=== PATIENT | female | born 1955 | race Caucasian/White ===

== ENCOUNTER 2019-04-22 00:51 | Emergency (ER) | payer BC, OTHER ==
[2019-04-22] MEDS ORDERED: Sodium Chloride 0.9% 1000 ML 1,000 ML IV STA (01:05)
[2019-04-22] MEDS ORDERED: ZOFRAN ODT 4 MG PO ONE ×2 (01:12→02:57)
[2019-04-22] MEDS ORDERED: TORAdol 30 mg Injection IV ONE ×2 (01:12→02:40)
--- NOTE | 2019-04-22 01:14 | ERPHSYRPT ---
- History of Present Illness Time Seen by Provider: 04/22/19 01:00 Historian: patient Exam Limitations: no limitations Patient Subjective Stated Complaint: Abdominal pain Triage Nursing Assessment: Patient ambulated back to ED and transferred self to bed. Patient A+O X3. Patient's skin pink, warm and dry. Patient complains of left sided abdominal pain starting earlier today that goes to back constant throbbing 02/24. Patient complains of N/V. Patient's abdomen soft and round with BS X4. Physician History: Pain, Left sided - back around to groin - started this afternoon; nausea and vomiting. No major medical history/appy only surgical procedure. Nothing unusual prior to the pain this PM. No fever. soaking sweats or shaking chills. Timing/Duration: hour(s) (10) Activities at Onset: none Abdominal Pain Onset Location: flank (Left around to left groin) Pain Radiation: flank, groin Severity of Pain-Max: moderate Severity of Pain-Current: moderate Allergies/Adverse Reactions: No Known Drug Allergies Allergy (Verified 04/22/19 00:58) Home Medications: Amlodipine Besylate 5 mg [Norvasc 5 mg] 5 mg PO DAILY 02/23/15 [History] Aspirin 81 mg PO DAILY 02/23/15 [History] Citalopram Hydrobromide 20 mg* [ceLEXa 20 MG] 20 mg PO DAILY 02/23/15 [ History] Quinapril HCl [Accupril] 40 mg PO DAILY 02/23/15 [History] Calcium Carbonate/Vitamin D3 [Calcium 600 + Vit D Caplet] 1 tab PO DAILY [History] Hydrochlorothiazide [Microzide] 1 tab PO DAILY 04/22/19 [History] Niacin (Inositol Niacinate) [Niacin 500 mg Capsule] 1 tab PO BID 04/22/19 [ History] Hx Tetanus, Diphtheria Vaccination/Date Given: No Hx Influenza Vaccination/Date Given: No Hx Pneumococcal Vaccination/Date Given: No Immunizations Up to Date: Yes - Review of Systems Constitutional: Malaise Respiratory: No Symptoms Cardiac: No Symptoms Abdominal/Gastrointestinal: Abdominal Pain, Nausea, Vomiting Genitourinary Symptoms: No Symptoms, No Dysuria, No Frequency, No Hematuria All Other Systems: Reviewed and Negative - Past Medical History Pertinent Past Medical History: Yes Neurological History: No Pertinent History ENT History: No Pertinent History Cardiac History: High Cholesterol, Hypertension Respiratory History: No Pertinent History Endocrine Medical History: No Pertinent History Musculoskeletal History: No Pertinent History GI Medical History: No Pertinent History History: No Pertinent History Psycho-Social History: No Pertinent History Female Reproductive Disorders: No Pertinent History - Past Surgical History Past Surgical History: No Neuro Surgical History: No Pertinent History Cardiac: No Pertinent History Respiratory: No Pertinent History Gastrointestinal: Appendectomy Genitourinary: No Pertinent History Musculoskeletal: No Pertinent History Female Surgical History: No Pertinent History - Social History Smoking Status: Never smoker Exposure to second hand smoke: No Alcohol Use: Socially Drug Use: none Patient Lives Alone: No Significant Family History: hypertension - Female History Hx Last Menstrual Period: menopausal Hx Now: No - Nursing Vital Signs Nursing Vital Signs: Initial Vital Signs Temperature 98.4 F 04/22/19 00:58 Pulse Rate 85 04/22/19 00:58 Respiratory Rate 18 04/22/19 00:58 Blood Pressure 158/94 04/22/19 00:58 O2 Sat by Pulse Oximetry 100 04/22/19 00:58 Pain Scale Pain Intensity 3 - Physical Exam General Appearance: moderate distress, alert Eye Exam: PERRL/EOMI Ears, Nose, Throat Exam: normal ENT inspection, pharynx normal, moist mucous membranes Neck Exam: normal inspection, non-tender, supple Respiratory Exam: normal breath sounds, lungs clear, airway intact Cardiovascular Exam: regular rate/rhythm, normal heart sounds Gastrointestinal/Abdomen Exam: soft, other (hyperactive bowell sounds (recent emesis)) Extremity Exam: normal inspection, No pedal edema, No swelling Neurologic Exam: alert, oriented x 3, cooperative, normal mood/affect Skin Exam: normal color, warm, dry SpO2 Interpretation: normal SpO2: 100 O2 Delivery: Room Air - Course Nursing assessment & vital signs reviewed: Yes - CT Exams Abdomen/Pelvis CT Interpretation: Other (Paraapelvic cyst stable (from 02/23/15) mild left perinephric fat stranding; no stone noted) Ordered Tests: Active Orders 24 hr Category Date Time Status IV Insertion STAT Care 04/22/19 01:05 Active ABDOMEN AND PELVIS W/0 CONTRAS [CT] Stat Exams 04/22/19 01:36 Taken CBC W DIFF Stat Lab 10/06/19 01:19 Completed CMP Stat Lab 04/22/19 01:19 Completed CULTURE,URINE Stat Lab 04/22/19 01:32 Received LIPASE Stat Lab 04/22/19 01:19 Completed UA W/RFX UR CULTURE Stat Lab 04/22/19 01:32 Completed Medication Summary Discontinued Medications Generic Name Dose Route Start Last Admin Trade Name Rina PRN Reason Stop Dose Admin Sodium Chloride 1,000 mls @ 999 mls/hr 04/22/19 01:05 04/22/19 02:38 Sodium Chloride 0.9% 1000 Ml IV 04/22/19 02:05 Infused .Q1H1M STA Infusion Sodium Chloride Confirm 04/22/19 01:21 Sodium Chloride 0.9% 1000 Ml Administered 04/22/19 01:22 Dose 1,000 mls @ ud .ROUTE .STK-MED ONE Ketorolac Tromethamine 15 mg 04/22/19 01:12 04/22/19 01:23 Toradol 30 Mg Injection IV 04/22/19 01:13 15 mg STAT ONE Administration Ketorolac Tromethamine Confirm 04/22/19 01:21 Toradol 30 Mg Injection Administered 04/22/19 01:22 Dose 30 mg .ROUTE .STK-MED ONE Ketorolac Tromethamine 15 mg 04/22/19 02:40 04/22/19 02:43 Toradol 30 Mg Injection IV 04/22/19 02:41 15 mg STAT ONE Administration Ketorolac Tromethamine Confirm 04/22/19 02:42 Toradol 30 Mg Injection Administered 04/22/19 02:43 Dose 30 mg .ROUTE .STK-MED ONE Ondansetron HCl 4 mg 04/22/19 01:12 04/22/19 01:23 Zofran Odt 4 Mg PO 04/22/19 01:13 4 mg STAT ONE Administration Ondansetron HCl Confirm 04/22/19 01:21 Zofran Odt 4 Mg Administered 04/22/19 01:22 Dose 4 mg .ROUTE .STK-MED ONE Lab/Rad Data: Laboratory Result Diagrams 04/22/19 01:19 04/22/19 01:19 Laboratory Results 04/22/19 04/22/19 04/22/19 Range/Units 01:32 01:19 01:19 WBC 7.6 (4.0-10.5) K/mm3 RBC 4.13 (4.1-5.4) M/mm3 Hgb 12.8 (12.0-16.0) gm/dl Hct 37.8 (35-47) % MCV 91.5 (78-100) fl MCH 31.0 (26-32) pg MCHC 33.9 (32-36) g/dl RDW 13.3 (11.5-14.0) % Plt Count 168 (150-450) K/mm3 MPV 10.0 H (6-9.5) fl Gran % 74.0 H (36.0-66.0) % Eos # (Auto) 0.08 (0-0.5) Absolute Lymphs (auto) 1.37 (1.0-4.6) Absolute Monos (auto) 0.51 (0.0-1.3) Lymphocytes % 18.1 L (24.0-44.0) % Monocytes % 6.7 (0.0-12.0) % Eosinophils % 1.1 (0.00-5.0) % Basophils % 0.1 (0.0-0.4) % Absolute Granulocytes 5.60 (1.4-6.9) Basophils # 0.01 (0-0.4) Sodium 139 (137-145) mmol/L Potassium 4.4 (3.5-5.1) mmol/L Chloride 103 (98-107) mmol/L Carbon Dioxide 24 (22-30) mmol/L Anion Gap 16.7 H (5-15) MEQ/L BUN 25 H (7-17) mg/dL Creatinine 0.76 (0.52-1.04) mg/dL Estimated GFR > 60.0 ML/MIN Glucose 146 H (74-106) mg/dL Calcium 10.3 H (8.4-10.2) mg/dL Total Bilirubin 1.10 (0.2-1.3) mg/dL AST 26 (14-36) U/L ALT 17 (0-35) U/L Alkaline Phosphatase 63 (38-126) U/L Serum Total Protein 8.0 (6.3-8.2) g/dL Albumin 4.5 (3.5-5.0) g/dL Lipase 119 (23-300) U/L Urine Color STRAW (YELLOW) Urine Appearance CLEAR (CLEAR) Urine pH 6.0 (5-6) Ur Specific Lafe 1.013 (1.005-1.025) Urine Protein NEGATIVE (Negative) Urine Ketones NEGATIVE (NEGATIVE) Urine Blood SMALL (0-5) Brenden/ul Urine Nitrite NEGATIVE (NEGATIVE) Urine Bilirubin NEGATIVE (NEGATIVE) Urine Urobilinogen NEGATIVE (0-1) mg/dL Ur Leukocyte Esterase TRACE (NEGATIVE) Urine WBC (Auto) 3-5 (0-5) /HPF Urine RBC (Auto) 3-5 (0-2) /HPF U Epithel Cells (Auto) NONE (FEW) /HPF Urine Bacteria (Auto) NONE SEEN (NEGATIVE) /HPF Urine Mucus (Auto) SLIGHT (NEGATIVE) /HPF Urine Culture Reflexed YES (NO) Urine Glucose NEGATIVE (NEGATIVE) mg/dL - Progress Progress: improved Progress Note: 04/22/19 01:46 Much improved with zofran and toradal; advised I suspect a kidney stone based on clinical picture and plan on a CT scan. Patient voices understanding and satisfaction. 04/22/19 02:[address] results; plan to TX with ABX and cover for pain/nasea. Ordered another half dose of Toradal (kidney function normal); patient voices understanding and satisfaction. - Departure Departure Disposition: Home Clinical Impression: Flank pain Condition: Stable Critical Care Time: No Referrals: CANDY ANDERSON [Primary Care Provider] - Additional Instructions: Take antibiotic as prescribed; use pain and nausea medication as prescribed. Follow up with primary care and discuss findings; taqke CD of scan with you for any follow up - you need to have urine rechecked to make sure that no infection is progressing. Prescriptions: Hydrocodone Bit/Acetaminophen [[place] 7.5-325 Tablet] 1 each PO Q6H PRN PRN #14 tablet PRN Reason: Mild To Moderate Pain Ondansetron ODT 4 MG [Zofran Odt 4 mg] 4 mg PO Q6H PRN PRN #10 tab.rapdis PRN Reason: Nausea Ciprofloxacin HCl [Cipro] 500 mg PO BID #14 tablet
[2019-04-22] MEDS ORDERED: TORAdol 30 mg Injection ONE ×2 (01:21→02:42)
[2019-04-22] MEDS ORDERED: ZOFRAN ODT 4 MG ONE ×2 (01:21→02:59)
[2019-04-22] MEDS ORDERED: Sodium Chloride 0.9% 1000 ML 1,000 ML ONE (01:21)
[2019-04-22 01:22] LABS: BASOPHIL % 0.1 % (0.0-0.4); Basophil (Absolute #) 0.01 (0-0.4); Eosinophil % 1.1 % (0.00-5.0); Eosinophil (Absolute #) 0.08 (0-0.5); Hematocrit 37.8 % (35-47); Hemoglobin 12.8 gm/dl (12.0-16.0); Lymphocyte (Absolute #) 1.37 (1.0-4.6); Lymphocytes % 18.1 % (24.0-44.0); Mean Cell Volume 91.5 fl (78-100); Mean Corpuscular Hgb Concent. 33.9 g/dl (32-36); Monocyte (Absolute #) 0.51 (0.0-1.3); Monocytes % 6.7 % (0.0-12.0); Platelet Count 168 K/mm3 (150-450); Red Blood Count 4.13 M/mm3 (4.1-5.4); Red Cell Distribution Width 13.3 % (11.5-14.0); White Blood Count 7.6 K/mm3 (4.0-10.5)
[2019-04-22 01:33] LABS: ALBUMIN 4.5 g/dL (3.5-5.0); ALKALINE PHOSPHATASE 63 U/L (38-126); ANION GAP 16.7 MEQ/L (5-15); BLOOD UREA NITROGEN 25 mg/dL (7-17); CHLORIDE 103 mmol/L (98-107); Calcium 10.3 mg/dL (8.4-10.2); Carbon Dioxide 24 mmol/L (22-30); Creatinine 1 0.76 mg/dL (0.52-1.04); Glucose 146 mg/dL (74-106); LIPASE 119 U/L (23-300); Potassium 4.4 mmol/L (3.5-5.1); SGOT/AST 26 U/L (14-36); SGPT/ALT 17 U/L (0-35); SODIUM 139 mmol/L (137-145)
[2019-04-22 01:41] LABS: Appearance CLEAR (CLEAR); Bilirubin NEGATIVE (NEGATIVE); Blood SMALL Ery/ul (0-5); Glucose NEGATIVE (NEGATIVE); Ketones NEGATIVE (NEGATIVE); Leukocyte Esterase TRACE (NEGATIVE); Mucus SLIGHT /HPF (NEGATIVE); Nitrite NEGATIVE (NEGATIVE); Protein,Urine Dip NEGATIVE (Negative); Specific Gravity 1.013 (1.005-1.025); Urobilinogen NEGATIVE mg/dL (0-1)
[2019-04-22 01:42] LABS: Bacteria NONE SEEN /HPF (NEGATIVE)
[2019-04-22] MEDS ORDERED: NORCO 5/325 MG PO ONE (02:56)
[2019-04-22] MEDS ORDERED: NORCO 5/325 MG ONE (02:59)
[2019-04-22 03:07] VITALS: BP 153/88; PULSE 85; O2SAT 97
--- NOTE | 2019-04-22 07:09 | XRAY ---
Indication: Left flank pain, nausea, and vomiting. Multiple contiguous axial images obtained through the abdomen and pelvis without contrast using renal stone protocol. Comparison: February 23, 2015. Lung bases are essentially clear. Heart is not enlarged. No renal calculus or evidence for obstructive uropathy in either system. Left kidney now appears mildly edematous with minimal perinephric stranding possibly underlying inflammation/nephritis. Stable left renal parapelvic cysts. Noncontrasted stomach and bowel loops appear nonobstructed. Interval appendectomy. Minimal scattered colonic diverticulosis. No free fluid/air. Stable large hepatic cysts and small pancreatic tail calcification. Remaining liver, gallbladder, pancreas, spleen, adrenal glands, kidneys, ureters, bladder, and uterus appear unremarkable for noncontrast exam. Stable moderate scattered aortoiliac calcifications without AAA. Osseous structures intact again with mild degenerative changes throughout the thoracolumbar spine. No ventral or inguinal hernias. Impression: 1. Negative renal calculus or evidence for obstructive uropathy. 2. New left renal edema with minimal perinephric stranding. Rule out nephritis. 3. Stable left renal cysts, hepatic cysts, benign pancreatic tail calcification, and colonic diverticulosis. Comment: Preliminary interpretation was made by [facility]. No discrepancy. CTDI 22.35
== END 2019-04-22 03:18 | disposition home or self-care (01) ==
LOC: ED 00:51
DX: R10.9 Unspecified abdominal pain (principal)
CPT/HCPCS: 36000; 36415; 74176; 80053; 81001; 83690; 85025; 87086; 96360; 96374; 96375; 96376; 99284; J1885; Q0162; A9270-GY

== ENCOUNTER 2024-03-04 11:49 | Emergency (ER) | payer BC ==
[2024-03-04] MEDS ORDERED: Zofran 4 MG/2 ML VIAL ONE ×2 (12:06→17:33)
--- NOTE | 2024-03-04 12:09 | ERPHSYRPT ---
- History of Present Illness Time Seen by Provider: 03/04/24 12:01 Source: patient, family, EMS Exam Limitations: no limitations Physician History: pt fell form 6-8 feet on ladder and struck head/neck and right shoulder and hip with some residual tenderness at these places on exam. tet UTD. No LOC but knocked wind out dazed for a moment. No blood thinners or dyscrasias. neck tender but remainder spine nontender. chest nontender. Nomral neuro exam and mental status, fundi bening, EOM full visual garibay intact. chest clear and nontender tender right shoulder and hip. N/V intact distally. abd soft nontender without peritoneal signs or masses. family in ER and EMS as independent confirming sources of Hx. disccused risks/benefits of testing/tx with pt and family including CT head, C spine, right shoulder and right hip and CXR, CBC, CMP, UA, IV and zofran and they wish to proceed. These are ordered. results discussed with pt and family. pt bp went down in 60s and back up to high 80s after ivf - trauma alert called - [facility] could not accept - trying [facility]. Occurred: just prior to arrival Injuries/Pain Location: head, neck, upper extremity, lower extremity Loss of Consciousness: brief (seconds), dazed Severity of Pain-Max: moderate Severity of Pain-Current: moderate Associated Symptoms (Fall): extremity injury, nausea Allergies/Adverse Reactions: No Known Drug Allergies Allergy (Verified 03/04/24 11:58) Home Medications: Amlodipine Besylate 5 mg [Norvasc 5 mg] 10 mg PO DAILY 02/23/15 [History] Aspirin 81 mg PO DAILY 02/23/15 [History] Citalopram Hydrobromide 20 mg* [ceLEXa 20 MG] 20 mg PO DAILY 02/23/15 [H istory] Calcium Carbonate/Vitamin D3 [Calcium 600 + Vit D Caplet] 1 tab PO DAILY 04/22/19 [History] Atorvastatin Calcium 20 mg PO DAILY 03/04/24 [History] Dapagliflozin Propanediol [Farxiga] 10 mg PO DAILY 03/04/24 [History] Ferrous Sulfate, Dried [Iron] 65 mg PO DAILY 03/04/24 [History] Pantoprazole 20 mg [Protonix 20MG Tablet] 20 mg PO DAILY 03/04/24 [History] lisinopriL [Lisinopril] 40 mg PO DAILY 03/04/24 [History] Hx Tetanus, Diphtheria Vaccination/Date Given: No Hx Influenza Vaccination/Date Given: No Hx Pneumococcal Vaccination/Date Given: No - Review of Systems Constitutional: No Fever, No Chills Eyes: No Symptoms Ears, Nose, & Throat: No Symptoms Respiratory: No Cough, No Dyspnea Cardiac: No Chest Pain, No Edema, No Syncope Abdominal/Gastrointestinal: No Abdominal Pain, No Nausea, No Vomiting, No Diarrhea Genitourinary Symptoms: No Dysuria Musculoskeletal: Neck Pain, Fall, Injury, Joint Pain, No Back Pain Skin: No Rash Neurological: No Dizziness, No Focal Weakness, No Sensory Changes Psychological: No Symptoms Endocrine: No Symptoms Hematologic/Lymphatic: No Symptoms Immunological/Allergic: No Symptoms All Other Systems: Reviewed and Negative - Past Medical History Pertinent Past Medical History: Yes Neurological History: No Pertinent History ENT History: No Pertinent History Cardiac History: High Cholesterol, Hypertension Respiratory History: No Pertinent History Endocrine Medical History: No Pertinent History Musculoskeletal History: No Pertinent History GI Medical History: No Pertinent History History: No Pertinent History Psycho-Social History: No Pertinent History Female Reproductive Disorders: No Pertinent History - Past Surgical History Past Surgical History: No Neuro Surgical History: No Pertinent History Cardiac: No Pertinent History Respiratory: No Pertinent History Gastrointestinal: Appendectomy Genitourinary: No Pertinent History Musculoskeletal: No Pertinent History Female Surgical History: No Pertinent History Significant Family History: hypertension - Social History Smoking Status: Never smoker Exposure to second hand smoke: No Alcohol Use: Socially Drug Use: none Patient Lives Alone: No - Nursing Vital Signs Nursing Vital Signs: Initial Vital Signs Temperature 96.4 F 03/04/24 11:50 Pulse Rate 74 03/04/24 11:50 Respiratory Rate 16 03/04/24 11:50 Blood Pressure 90/54 03/04/24 11:50 O2 Sat by Pulse Oximetry 94 L 03/04/24 11:50 Pain Scale Pain Intensity 4 - Ginger Coma Score Best Eye Response (Ginger): (4) open spontaneously Best Verbal Response (Turon): (5) oriented Best Motor Response (Ginger): (6) obeys commands Turon Total: 15 - Physical Exam General Appearance: no apparent distress, alert Head Injury: no evidence of injury Eye Exam: PERRL/EOMI ENT Exam: airway nml Neck Exam: normal inspection, No tenderness Respiratory/Chest Exam: normal breath sounds, No chest tenderness, No respiratory distress Cardiovascular Exam: normal heart sounds, regular rate/rhythm Gastrointestinal Exam: soft, No tenderness, No distention, No guarding, No ecchymosis Rectal Exam: deferred Back Exam: normal inspection, No vertebral tenderness Extremity Exam: normal inspection, normal range of motion, pelvis stable, joint swelling, limited range of motion (right shoulder and hip), pain with movement (right shoulder- hip), No deformities Peripheral Pulses: carotid (R): 2+, carotid (L): 2+, femoral (R): 2+, femoral (L): 2+, dorsalis-pedis (R): 2+, dorsalis-pedis (L): 2+ Neurologic Exam: alert, oriented x 3, cooperative, web editor II-XII nml as tested, normal mood/affect, nml cerebellar function, sensation nml, No motor deficits, No sensory deficit, No disoriented, No confusion Skin Exam: normal color, warm, dry SpO2 Interpretation: normal O2 Delivery: Room Air - Course Nursing assessment & vital signs reviewed: Yes - Radiology Exams Chest X-ray Interpretation: Reviewed by me, Displaced Fracture (right scapular fx), Subluxation - CT Exams Head CT Interpretation: Tele-radiologist Report, No/Intracranial Hemorrhag, Other (aging microvasc changes) Cervical Spine CT Interpretation: Tele-radiologist Report, No Fracture, Other (DJD DDD minimal splondy) Right Upper Extremity CT Interpretation: Tele-radiologist Report, Fracture (right scapula) Abdomen/Pelvis CT Interpretation: Tele-radiologist Report, Other (liver and renal masses, and pancreatic mass,) Chest CT Interpretation: Tele-radiologist Report, No Fracture, Other (no hemorrage seen) Ordered Tests: Active Orders 24 hr Category Date Time Status ABDOMEN AND PELVIS W/0 CONTRAS [CT] Stat Exams 03/04/24 12:58 Completed CERVICAL SPINE WO CONTRAST [CT] Stat Exams 03/04/24 12:45 Completed CHEST 1 VIEW (PORTABLE) Stat Exams 03/04/24 12:32 Taken CHEST WITHOUT CONTRAST [CT] Stat Exams 03/04/24 12:54 Completed HEAD WITHOUT CONTRAST [CT] Stat Exams 03/04/24 12:45 Completed LOWER EXTREMITY WO CONTRAST [CT] Stat Exams 03/04/24 12:49 Completed UPPER EXTREMITY W/O CONTRAST [CT] Stat Exams 03/04/24 12:45 Completed CBC W DIFF Stat Lab 03/04/24 12:19 Completed CMP Stat Lab 03/04/24 12:19 Completed Lactic Acid Stat Lab 03/04/24 12:14 Completed Lactic Acid Stat Lab 03/04/24 14:34 Received UA W/RFX UR CULTURE Stat Lab 03/04/24 12:15 Ordered Medication Summary Generic Name Dose Route Start Last Admin Trade Name Freq PRN Reason Stop Dose Admin Sodium Chloride 1,000 mls @ 100 mls/hr 03/04/24 12:30 03/04/24 12:24 Sodium Chloride 0.9% 1000 Ml IV 04/03/24 12:29 100 mls/hr .Q10H REZA Administration Discontinued Medications Generic Name Dose Route Start Last Admin Trade Name Freq PRN Reason Stop Dose Admin Sodium Chloride Confirm 03/04/24 12:12 Sodium Chloride 0.9% 1000 Ml Administered 03/04/24 12:13 Dose 1,000 mls @ ud .ROUTE .STK-MED ONE Sodium Chloride 1,000 mls @ 999 mls/hr 03/04/24 12:13 03/04/24 12:15 Sodium Chloride 0.9% 1000 Ml IV 03/04/24 13:13 999 mls/hr .Q1H1M STA Administration Ondansetron HCl Confirm 03/04/24 12:06 Ondansetron Hcl 4 Mg/2 Ml Vial Administered 03/04/24 12:07 Dose 4 mg .ROUTE .STK-MED ONE Ondansetron HCl 4 mg 03/04/24 12:05 03/04/24 12:14 Ondansetron Hcl 4 Mg/2 Ml Vial IV 03/04/24 12:06 4 mg STAT ONE Administration Lab/Rad Data: Laboratory Result Diagrams 03/04/24 12:19 03/04/24 12:19 Laboratory Results 03/04/24 03/04/24 03/04/24 Range/Units 12:19 12:19 12:14 WBC 6.8 (3.98-10.04) x10^3/uL RBC 4.14 (3.93-5.22) x10^6/uL Hgb 12.7 (11.2-15.7) g/dL Hct 38.9 (34.1-44.9) % MCV 94.0 (79.4-94.8) fL MCH 30.7 (25.6-32.2) pg MCHC 32.6 (32.2-35.5) g/dL RDW 13.7 (11.7-14.4) % Plt Count 173 L (182-369) x10^3/uL MPV 10.1 (9.4-12.3) fL Gran % 76.3 H (34.0-71.1) % Immature Gran % (Auto) 0.4 (0.001-0.429) % Nucleat RBC Rel Count 1.2 H (0.00-0.2) % Eos # (Auto) 0.10 (0.04-0.36) x10^3/uL Immature Gran # (Auto) 0.03 (0.001-0.031) x10^3u/L Absolute Lymphs (auto) 1.25 (1.18-3.74) x10^3/uL Absolute Monos (auto) 0.22 L (0.24-0.86) x10^3/uL Absolute Nucleated RBC 0.08 H (0.00-0.012) x10^3u/L Lymphocytes % 18.3 L (19.3-51.7) % Monocytes % 3.2 L (4.7-12.5) % Eosinophils % 1.5 (0.7-5.8) % Basophils % 0.3 (0.1-1.2) % Absolute Granulocytes 5.21 (1.56-6.13) x10^3/uL Basophils # 0.02 (0.01-0.08) x10^3/uL Sodium 138 (135-145) mmol/L Potassium 4.4 (3.5-5.1) mmol/L Chloride 104 (98-107) mmol/L Carbon Dioxide 26 (22-30) mmol/L Anion Gap 11.8 (5-15) MEQ/L BUN 26 H (7-17) mg/dL Creatinine 1.44 H (0.52-1.04) mg/dL Estimated GFR 39.1 ML/MIN Glucose 151 H (74-106) mg/dL Lactic Acid 2.5 H (0.4-2.0) Calcium 8.8 (8.4-10.2) mg/dL Total Bilirubin 1.10 (0.2-1.3) mg/dL AST 214 H (14-36) U/L ALT 129 H (0-35) U/L Alkaline Phosphatase 69 (38-126) U/L Serum Total Protein 7.0 (6.3-8.2) g/dL Albumin 4.0 (3.5-5.0) g/dL - Progress Progress: improved, re-examined Progress Note: 03/04/24 15:[address] Ornelas and they are having surgeon paged - dr. March 03/04/24 16:52 Dr. March felt that the pt would be best at a higher level of care. 03/04/24 17:03 Discussed and consulted with transfer center and they autoaccepted as a trauma 2 Dr. Richmond at [facility] accepting. Discussed with Dr.: Other (Dr. Richmond accepting at [facility] trauma center) Will see patient in: ED Counseled pt/family regarding: lab results, diagnosis, need for follow-up, rad results Medical Desision Making - Independent Historian Additional History obtained from: Family - Discussion of managment Care discussed with:: specialist Reviewed:: Test results, Need for additional workup Agreed on:: Treatment plan, need for follow-up Will see patient: in ED - Diagnostic Testing Diagnostic test were ordered, analyzed, and reviewed by me: Yes Radiological Interpretation: Teleradiologist Report - Risk of complications The pt has a mod risk of morbidity or mortality based on: Need for prescription drug management The pt has a high risk of morbidity or mortality based on: Decision regarding hospitilization or escalation of hosp level of care - Departure Departure Disposition: Transfer Clinical Impression: Scapular fracture with hypotension, Liver mass with hemorrhage, pancreatic nodule, Hydronephrosis of left kidney Condition: Good Critical Care Time: No Referrals: CANDY ANDERSON [NON-STAFF PHY W/O PRIVILEGES] - Follow up/PCP as directed
[2024-03-04] MEDS ORDERED: Sodium Chloride 0.9% 1000 ML 1,000 ML ONE ×3 (12:12→17:33)
[2024-03-04] MEDS: Zofran 4 MG/2 ML VIAL IV ONE ×2 (12:14→17:34)
[2024-03-04] MEDS: Sodium Chloride 0.9% 1000 ML 1,000 ML IV STA ×2 (12:15→17:34)
[2024-03-04 12:19] LABS: Absolute Neutrophil Ct (ANC) 5.21 x10^3/uL (1.56-6.13); BASOPHIL % 0.3 % (0.1-1.2); Basophil (Absolute #) 0.02 x10^3/uL (0.01-0.08); Eosinophil % 1.5 % (0.7-5.8); Hematocrit 38.9 % (34.1-44.9); Hemoglobin 12.7 g/dL (11.2-15.7); IMMATURE GRAN # 0.03 x10^3u/L (0.001-0.031); IMMATURE GRAN % 0.4 % (0.001-0.429); Lymphocyte (Absolute #) 1.25 x10^3/uL (1.18-3.74); Lymphocytes % 18.3 % (19.3-51.7); Mean Corpuscular Hemoglobin 30.7 pg (25.6-32.2); Mean Corpuscular Hgb Concent. 32.6 g/dL (32.2-35.5); Mean Platelet Volume 10.1 fL (9.4-12.3); Monocyte (Absolute #) 0.22 x10^3/uL (0.24-0.86); Monocytes % 3.2 % (4.7-12.5); NUCLEATED RBC # 0.08 x10^3u/L (0.00-0.012); NUCLEATED RBC % 1.2 % (0.00-0.2); Neutrophil % 76.3 % (34.0-71.1); Platelet Count 173 x10^3/uL (182-369); Red Blood Count 4.14 x10^6/uL (3.93-5.22); Red Cell Distribution Width 13.7 % (11.7-14.4); White Blood Count 6.8 x10^3/uL (3.98-10.04)
[2024-03-04] MEDS: Sodium Chloride 0.9% 1000 ML 1,000 ML IV SCH (12:24)
[2024-03-04 12:28] LABS: ANION GAP 11.8 MEQ/L (5-15); BILIRUBIN,TOTAL 1.1 mg/dL (0.2-1.3); Calcium 8.8 mg/dL (8.4-10.2); Creatinine 1 1.44 mg/dL (0.52-1.04); EST GLOMERULAR FILTRATION RATE 39.1 ML/MIN; Potassium 4.4 mmol/L (3.5-5.1)
[2024-03-04 12:40] VITALS: TEMP 96.4
--- NOTE | 2024-03-04 13:33 | XRAY ---
CLINICAL HISTORY: trauma with symptoms COMPARISON: none. TECHNIQUE: Axial non-contrast CT scan of the brain was performed from the skull base to the high parietal region. One of the following dose reduction techniques were utilized for this exam: Automated exposure control, adjustment of the mA and/or kV according to patient size, use of iterative reconstruction FINDINGS: Brain Parenchyma: There are a few tiny ill-defined hypodense foci noted in the subcortical white matter bilaterally associated with bilateral mild periventricular white matter hypodensity, suggestive of microvascular ischemic changes. Normal attenuation of the cerebellum, and brainstem. No evidence of acute infarct, hemorrhage, or mass effect. No abnormal areas of hyperattenuation. Ventricular System and Subarachnoid Spaces: The ventricular system, cortical sulci, cerebellar folia, and basal cisterns are prominent and consistent with senile changes. No evidence of hydrocephalus. No evidence of subarachnoid hemorrhage or extra-axial fluid collections. Cerebellum and Brainstem: Normal size and signal. No masses, lesions, or areas of abnormal signal. Orbits: Normal appearance of the globes, optic nerves, and extraocular muscles. No evidence of orbital masses or abnormal signal. Sinuses: Clear paranasal sinuses. No evidence of sinusitis or mucosal thickening. Mastoid Air Cells: Clear mastoid air cells. No evidence of mastoiditis. Skull and Meninges: Normal skull morphology. No evidence of meningeal thickening. IMPRESSION: 1. No acute CT abnormality. No fracture lines. 2. Microvascular ischemic changes. 3. Age-related brain involutional changes. Electronically Signed by: Josr Cowan MD. (03/04/2024 13:29:11 EDT)
--- NOTE | 2024-03-04 13:50 | XRAY ---
CLINICAL HISTORY: trauma with neck pain COMPARISON: none. TECHNIQUE: CT scan of the cervical spine was performed without the administration of intravenous contrast. Contiguous axial images were obtained from the skull base to the upper thoracic spine. Coronal and sagittal reformatted images were also reviewed. One of the following dose-reduction techniques was utilized for this exam. Automated exposure control, adjustment of the mA and/or kV according to patient size, and use of iterative reconstruction. FINDINGS: Vertebrae: Minimal retrolithesis of C5 over C56 vertebral bodies. The vertebral bodies are normal in height. No evidence of acute fracture or dislocation. The cortical and trabecular bone patterns are normal. No signs of lytic or sclerotic lesions. Normal configuration of the posterior elements. Intervertebral Discs: Multilevel reduced intervertebral disc height, most evident at C5-6 level. Anteromarginal bone hypertrophy of vertebral end plates. No calcifications or ossifications were noted within the discs. C2-C3: There is no significant disc pathology. Normal morphology of the ligamentum flava. No arthropathy of the uncovertebral and zygapophyseal joints. No significant spinal canal stenosis. C3-C4: small broad-based disc central disc protrusion measuring 2.2 mm, not touching the cord. Normal morphology of the ligamentum flava. bilateral hypertrophic neurocentral and facetal arthropathy. No significant spinal canal stenosis. C4-C5: broad-based central disc protrusion measuring 2.7 mm, touching the ventral aspect of the cord cord. Normal morphology of the ligamentum flava. bilateral hypertrophic neurocentral and facetal arthropathy. No significant spinal canal stenosis. C5-C6: Posterior diffuse disc bulge/osteophyte complex extending approximately 3.2 mm posteriorly along with retrolithesis, hypertrophy of bilateral facets and neurocentral joints causing mild central canal stenosis and moderate to marked stenosis of bilateral neural foramina. C6-C7: Posterior diffuse disc bulge/osteophyte complex extending approximately 2.6 mm posteriorly along with hypertrophy of bilateral facets and neurocentral joints causing mild central canal stenosis and moderate stenosis of bilateral neural foramina. C7-T1: There is no significant disc pathology. Normal morphology of the ligamentum flava. No arthropathy of the uncovertebral and zygapophyseal joints. No significant spinal canal stenosis Facet Joints: C3-4 through C6-7 bilateral hypertrophic neurocentral and facetal arthropathy. Prevertebral Soft Tissues: The prevertebral soft tissues are normal in thickness without evidence of mass or abnormal fluid collection. Additional Findings: No other significant findings are noted in the visualized soft tissue structures or bony elements. IMPRESSION: 1. No evidence of acute fracture or dislocation. 2. Minimal retrolithesis of C5 over C56 vertebral body. 3. 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 MRI cervical spine is advised 4. C3-4 through C6-7 bilateral hypertrophic neurocentral and facetal arthropathy. Electronically Signed by: Josr Cowan MD. (03/04/2024 13:45:49 EDT)
--- NOTE | 2024-03-04 14:09 | XRAY ---
CLINICAL HISTORY: pain right shoulder after fall COMPARISON: None. TECHNIQUE: Thin axial images of the right shoulder joint without contrast were obtained with sagittal and coronal reconstruction. One of the following dose reduction techniques were utilized for this exam: Automated exposure control, adjustment of the mA and/or kV according to patient size, and use of iterative reconstruction. FINDINGS: Bones: Comminuted fracture of the scapula involving the scapula body, infraspinatous fossa and spinous process with multiple displaced bony fragments. Small chip fracture of the inferior glenoid. Normal alignment of the humeral head, and glenoid. No dislocations. No lytic or sclerotic lesions. Reduced bone density. Glenohumeral Joint: Normal joint space without significant narrowing. No evidence of loose bodies or intra-articular fragments. Acromioclavicular (AC) Joint: Signs of chronic osteoarthritis of the AC joint, evident by joint space narrowing, irregularity of articular surfaces, and subchondral cyst formation. Rotator Cuff: Bulky infraspinatus and subscapularis muscles surrounding the scapula suggest muscular injury. Soft Tissues: Normal appearance of the soft tissues surrounding the shoulder. No signs of masses, or abnormal fluid collections. IMPRESSION: 1. Comminuted fracture of the scapula with surrounding muscle injury. 2. Inferior glenoid fracture. 3. Chronic osteoarthritis of the acromioclavicular joint. 4. MRI shoulder is advised for soft tissue and ligamentous injuries. [facility] ER was called at [phone] at 12:58 PM CHILLER TENDER, 03/04/[address] Caldera was informed regarding the presence of Significant Medical Findings in the report. Electronically Signed by: Josr Cowan MD. (03/04/2024 14:04:38 EDT)
--- NOTE | 2024-03-04 14:09 | XRAY ---
CLINICAL HISTORY: hypotensive after fall COMPARISON: None. TECHNIQUE: Contiguous axial CT images of the chest were acquired without administration of intravenous contrast. Coronal and sagittal reconstructions were obtained. One of the following dose reduction techniques were utilized for this exam: Automated exposure control, adjustment of the mA and/or kV according to patient size, use of iterative reconstruction. FINDINGS: Lungs: No evidence of consolidation, collapse, or focal lesions. No pulmonary nodules or masses are identified. Atelectatic changes seen in right lower lobe No evidence of interstitial lung disease or emphysema. No pleural effusion or pleural thickening. No evidence of pneumothorax Mediastinum: The mediastinum is normal in size and contour. No mediastinal mass or abnormal lymphadenopathy. The heart size is within normal limits. Elevated right hemidiaphragm probably due to upward enlargement of liver. Hilar Structures: The hilar structures appear normal without enlargement or abnormality. Trachea and Main Bronchi: The trachea and main bronchi are patent without evidence of obstruction or abnormality. Chest Wall: The chest wall is unremarkable with no evidence of soft tissue or bony abnormalities. Upper Abdomen: Visualized portions of the abdomen will be detailed in CT Abdominal study. Bones: Comminuted fracture of the right scapula noted Spondylodegenerative changes seen in the visualized spine, no evidence of lytic/sclerotic lesions. Mild scoliosis of the thoracic spine with convexity towards right side. IMPRESSION: Comminuted fracture of the right scapula. No pulmonary mass, hemorrhage, collapse or consolidative changes. [facility] ER was called at [phone] at 12:58 PM ASSEMBLER ENGINE, 03/04/[address] Caldera was informed regarding the presence of Significant Medical Findings in the report. Electronically Signed by: Josr Cowan MD. (03/04/2024 14:05:46 EDT)
--- NOTE | 2024-03-04 14:15 | XRAY ---
CLINICAL HISTORY: hypotensive after fall COMPARISON: None. TECHNIQUE: CT scan of the abdomen and pelvis was performed without IV contrast. Coronal and sagittal reconstructive images were also obtained. One of the following dose-reduction techniques was utilized for this exam.Automated exposure control, adjustment of the mA and/or kV according to patient size, and use of iterative reconstruction. FINDINGS: Abdomen: The liver is normal in size and measures 14.8 cm. No diffuse parenchymal abnormality. A large hepatic partly exophytic hypodense focal lesion with HU 10-15, seen occupying most of segments IVb, V, and , showing internal whorly and rounded slight hyperdensities, measuring 9.3 x 10.5 x 13 cm along maximum CC, and axial diameters respectively. Another hypodense focal lesion with a fine calcific focus at its posterior aspect is seen occupying most of II and III, measuring 7 x 7.8 x 6.3 cm along maximum CC and axial diameters. The portal vein, intrahepatic biliary radicals, and the bile ducts are normal. The spleen and adrenal glands are unremarkable. A calcified rounded pancreatic tail focal lesion is noted measuring 7.7 mm along maximum diameter. Marked left hydronephrosis, with imperceptible renal parenchyma.Normal course and caliber of the left ureter. no stones. The right kidney is unremarkable. They are normal in size and shape. No calculi or hydronephrosis. The gallbladder is normal. No pericholecystic collection or radio-dense calculi in the gall bladder. The ascending colon, the transverse colon, the descending colon, visualized small bowel loops are unremarkable. There is no evidence of significant enlargement of the mesenteric or retroperitoneal lymph nodes. Small omental containing umbilical hernia. Atherosclerotic changes of the abdominal aorta and both iliac arteries. Pelvis: The urinary bladder is unremarkable. The rectosigmoid colon is unremarkable, apart from a few diverticular outpouchings, and no surrounding inflammatory changes. The pelvic structures are unremarkable. The pelvic vasculature is unremarkable. No evidence of pelvic lymphadenopathy. Spondylodegenrative changes with mild dextroscoliosis. No lytic or sclerotic bone lesions. Lower Ct chest cuts show bilateral lower lobar subpleural reticulations with fine ground glass densities, much more on the right side. IMPRESSION: 1. A large hepatic partly exophytic hypodense focal lesion, seen occupying most of segments IVb, V, and , showing internal whorly and rounded slight hyperdensities, measuring 9.3 x 10.5 x 13 cm along maximum CC, and axial diameters respectively, the internal texture worrisome of internal hemorrhagic areas. 2. Another hypodense focal lesion with a fine calcific focus at its posterior aspect is seen occupying most of II and III segments, measuring 7 x 7.8 x 6.3 cm along maximum CC and axial diameters. 3. Further clinical, lab correlation as well as further triphasic contrast-enhanced study is needed. 4. A calcified rounded pancreatic tail focal lesion is noted measuring 7.7 mm along maximum diameter. 5. 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 6. A few sigmoid diverticular outpouchings, and no surrounding inflammatory changes. [facility] ER was called at [phone] at 12:58 PM FINAL INSPECTOR BALANCE WHEEL, 03/04/[address] Caldera was informed regarding the presence of Important Medical Findings in the report. Electronically Signed by: Josr Cowan MD. (03/04/2024 14:11:48 EDT)
--- NOTE | 2024-03-04 14:25 | XRAY ---
CLINICAL HISTORY: pain right hip after fall. COMPARISON: No previous studies are available for comparison. TECHNIQUE: CT scan of the pelvis was performed without the administration of intravenous contrast. Contiguous axial images were obtained from the iliac crests to the pubic symphysis. Coronal and sagittal reformatted images were also reviewed. One of the following dose reduction techniques was utilized for this exam. Automated exposure control, adjustment of the mA and/or kV according to patient size, and use of iterative reconstruction. FINDINGS: Pelvic Bones: The pelvic bones are intact without evidence of fracture or destructive lesions. Bilateral degenerative changes of the sacroiliac joint. Mild degenerative changes are noted in both hip joints. Degenerative changes of the distal lumbar spine. No lytic or sclerotic lesions. Uterus: The uterus is atrophied. No focal lesions or masses identified. Adnexa: Both ovaries are not visualized mostly atrophied. No adnexal masses or cysts identified. Bladder: The urinary bladder is adequately distended and appears normal. Rectum and Colon: The rectum and colon are within normal limits without evidence of wall thickening or abnormal enhancement. Pelvic Soft Tissues: The pelvic soft tissues are unremarkable without evidence of mass or abnormal fluid collection. Additional Findings: No free fluid or lymphadenopathy was identified in the pelvis. IMPRESSION: 1. No fracture or acute bony injury. 2. Mild degenerative changes are noted in both hip and sacroiliac joints. 3. Unremarkable soft tissues. Electronically Signed by: Josr Cowan MD. (03/04/2024 14:21:38 EDT)
[2024-03-04 17:27] VITALS: O2SAT 97
[2024-03-04 18:01] VITALS: BP 89/60; PULSE 83; RESP 20
--- NOTE | 2024-03-04 20:06 | XRAY ---
Indication: Pain following fall. Comparison: None Portable chest underinflated and clear. Heart not enlarged. Bony thorax demonstrates osteopenia and mild degenerative changes. Right shoulder fracture reported separately.
== END 2024-03-04 18:13 | disposition short-term general hospital (02) ==
LOC: ED 11:49
DX: S42.111A Displaced fracture of body of scapula, right shoulder, initial encounter for closed fracture (principal); W11.XXXA Fall on and from ladder, initial encounter; I95.9 Hypotension, unspecified; R16.0 Hepatomegaly, not elsewhere classified; K92.2 Gastrointestinal hemorrhage, unspecified; K86.89 Other specified diseases of pancreas; N13.30 Unspecified hydronephrosis; R51.9 Headache, unspecified; M54.2 Cervicalgia; M25.511 Pain in right shoulder; M25.551 Pain in right hip; E78.5 Hyperlipidemia, unspecified; I10 Essential (primary) hypertension; Z79.84 Long term (current) use of oral hypoglycemic drugs; Z79.899 Other long term (current) drug therapy
CPT/HCPCS: 36000; 36415; 70450; 71045; 71250; 72125; 73200; 73700; 74176; 80053; 83605; 85025; 96360; 96374; 96376; 99285; J2405